=== PATIENT | female | born 1995 | race Caucasian/White ===

== ENCOUNTER 2018-05-03 20:08 | Inpatient (IN) ==
--- NOTE | 2018-05-03 18:32 | OB/GYN Progress Note ---
Date of Encounter: 05/03/18 Time of Encounter: 18:29 - Assessment and Plan (1) Pelvic pressure in Current Visit: Yes Status: Acute SVE unchanged. Suspect pressure from low station. Spotting from exam earlier today. Discharge home with precautions. Follow-up Tuesday as scheduled for IOL. (2) 38 weeks gestation of Current Visit: Yes Status: Acute Subjective - Subjective Interval history: 22 year-old presenting at 38w6d with c/o pelvic pressure and bright red spotting. She was seen in the office today and was checked. She reports the bleeding started then and has just been spotting on her toilet paper. No blood on her pad. She denies contractions but reports increased pelvic pressure and urinary frequency. No leaking fluid. No dysuria or other symptoms. Good FM. Antepartum ROS: vaginal bleeding, movement normal, no loss of fluid, no contractions Objective - Vital Signs Vital Signs: Intake and Output 05/03/18 05/03/18 05/03/18 07:59 15:59 23:59 Other: Weight 69.3 kg Patient Weight 05/03/18 23:59 Weight 69.3 kg - Exam FHR: category 1 FHR comments: NST 135 BPM and reactive Auscultation: bilateral: normal Abdomen: Present: soft, gravid Uterus: Present: normal Cervical dilation: 4-5cm, unchanged from office
[2018-05-03 18:42] LABS: Amphetamine Screen,Urine Negative ng/mL (Cutoff=1000); Barbiturate Screen,Urine Negative ng/mL (Cutoff=200); Benzodiazepines Screen,Urine Negative ng/mL (Cutoff=200); Cannabinoid Screen,Urine Negative ng/mL (Cutoff = 50); Cocaine Screen,Urine Negative ng/mL (Cutoff= 300); Opiate Screen,Urine Negative ng/mL (Cutoff=300); Phencyclidine Screen,Urine Negative ng/mL (Cutoff=25)
--- NOTE | 2018-05-03 19:50 | OB/GYN History & Physical ---
Date of Encounter: 05/03/18 Time of Encounter: 19:46 Assessment and Plan (1) Pelvic pressure in Current visit: Yes Status: Acute (2) 38 weeks gestation of Current visit: Yes Status: Acute NST reactive, FHR baseline 135bpm. Admit for IOL to begin at midnight at 39weeks per Dr. Palumbo. Epidural when desired (3) History of depression Current visit: Yes Status: Acute Reports good mood. History of Present Illness Chief complaint: Pelvic Pressure HPI: 22 year-old presenting at 38w6d with c/o pelvic pressure and bright red spotting. She was seen in the office today and was checked. She reports the bleeding started then and has just been spotting on her toilet paper. No blood on her pad. She denies contractions but reports increased pelvic pressure and urinary frequency. No leaking fluid. No dysuria or other symptoms. Good FM. AB Positive GBS Negative Rubella Immune HIV Nonreactive Syphillis Negative Hep B Nonreactive Past Med Surg Social Fam HX - Past Medical History Medical history: asthma, other Additional medical history: depression Psychiatric history: anxiety, depression - Past Surgical History Surgical History: other Additional surgical history: rt ovary removed,tonsils,d&c - Social History Smoking Status: Never smoker Smokeless Tobacco Status: No Alcohol use: none Drug use: none - Family History Father Adopted: No Family Member Ethnicity: Non- Living Status: Hx Family Cardiac Disorders: Yes (enlarged heart, heart failure, [place]) Hx Family Respiratory Disorders: Yes (copd, asthma) Hx Family Cancer: Yes (leukemia) Hx Family GI Disorders: No Hx Family Genitourinary Disorders: Yes (renal failure) Hx Family Endocrine Disorder: Yes (DM) Hx Family Neurologic Disorders: Yes (Stroke) Obstetrical History - Pregnancies : 3 Para: 1 Term: 1 : 0 Ab's: 1 Livin Medications and Allergies Sertraline [Zoloft] 50 mg PO HS 03/03/16 [History] DiphenhydraMINE [Benadryl] 1 tab PO PRN PRN 05/03/18 [History] Vits #90/Iron Fum/FA [ Formula Tablet] 1 tab PO DAILY 05/03/18 [History] Allergy/AdvReac Type Severity Reaction Status Date / Time citalopram [From Celexa] Allergy Unknown See Verified 10/03/17 00:54 Comments lamotrigine [From Lamictal] Allergy Rash Verified 10/03/17 00:54 Sulfa (Sulfonamide Allergy Hives Verified 10/03/17 00:54 Antibiotics) Review of System OB All systems PM: reviewed and no additional remarkable complaints except as stated Exam - Constitutional Constitutional: well developed, well nourished, no acute distress, average body habitus - HEENT HEENT: Mucus Membranes Moist - Neck Neck exam: full ROM - Lungs Respiratory exam: CTAB - Cardiovascular Cardiovascular exam: RRR - Abdomen Abdomen: Present: bowel sounds normal - Extremities Extremities exam: normal capillary refill, normal inspection Deep Tendon Reflex Grade: 2+ Normal - Cervix Dilation: 4 (4-5cm) Effacement: 75 Station: -1 Results All other labs normal. - VTE Reasons for not Prescribing Prophylaxis: Treatment not Indicated - Low risk for VTE
[~2018-05-03 20:08] MED LIST: *HR* Nalbuphine 10 MG/ML AMPUL IVP PRN; Famotidine 20 MG/2 ML VIAL IVP PRN; Metoclopramide 10 MG/2 ML VIAL IVP PRN; Naloxone 0.4 MG/ML INJ IVP PRN; Ondansetron 4 MG/2 ML VIAL IVP PRN
[2018-05-03] MEDS ORDERED: Ringers Solution, Lactated 1,000 ML IVC SCH (20:15)
[2018-05-03 20:54] LABS: Basophils # 0.1 K/mcL (0.0-0.2); Basophils % 0.4 %; Eosinophils # 0.2 K/mcL (0.0-0.6); Eosinophils % 1.2 %; Hematocrit 28.6 % (35.3-44.9); Hemoglobin 9.3 g/dL (11.5-15.4); Immature Granulocytes % 1.6 % (0-4); Lymphocytes # 2.7 K/mcL (0.6-4.6); Lymphocytes % 16.6 %; Mean Corpuscular HGB Conc 32.5 g/dL (31.6-35.5); Mean Corpuscular Volume 89.1 fL (83.0-100.0); Mean Platelet Volume 11.4 fL (9.4-12.4); Monocytes % 6.1 %; Neutrophils # 12.2 K/mcL (1.6-8.9); Platelet Count 244 K/mcL (140-400); Red Blood Count 3.21 M/mcL (3.82-4.97); Red Cell Distribution Width 13.6 % (11.5-14.5); Segmented Neutrophils % 74.1 %
[2018-05-03 21:16] LABS: Amphetamine Screen,Urine Negative ng/mL (Cutoff=1000); Barbiturate Screen,Urine Negative ng/mL (Cutoff=200); Benzodiazepines Screen,Urine Negative ng/mL (Cutoff=200); Cannabinoid Screen,Urine Negative ng/mL (Cutoff = 50); Cocaine Screen,Urine Negative ng/mL (Cutoff= 300); Opiate Screen,Urine Negative ng/mL (Cutoff=300); Phencyclidine Screen,Urine Negative ng/mL (Cutoff=25)
--- NOTE | 2018-05-04 00:27 | OB Labor Progress Note ---
Date of Encounter: 05/04/18 Time of Encounter: 00:24 Labor Progress Note - Subjective Subjective: Pt reports irregular contractions at this time. - Cervix Cervix: 5/90/-1 - Heart Tones Heart Tones: Category I - Odin Odin: irregular and mild - Interventions Interventions: AROM for small amount clear fluid - Plan Plan: Will augment with pitocin as necessary. Epidural when requested. Anticipate . POC discussed with Dr. Palumbo
[2018-05-04] MEDS ORDERED: Bupivacaine-MPF 0.25% 10 ML VIAL EP ONE (00:34)
[2018-05-04] MEDS ORDERED: *HR* FentaNYL (PF) 100 MCG/2 ML VIAL EP ONE (00:34)
[2018-05-04] MEDS ORDERED: Bupivacaine-MPF 0.25% 10 ML VIAL ONE (00:36)
[2018-05-04] MEDS ORDERED: Lidocaine -MPF 1% 5 ML AMPUL ONE (00:36)
[2018-05-04] MEDS ORDERED: *HR* FentaNYL (PF) 100 MCG/2 ML VIAL ONE (00:37)
[2018-05-04] MEDS ORDERED: Epidural Premix (fent/bupiv) 110 ML EP SCH (00:45)
--- NOTE | 2018-05-04 00:49 | Anesthesia Evaluation PreOp ---
Date of Encounter: 05/04/18 Time of Encounter: 00:47 - Past History Planned Operation: COLBY Cardiac History: Denies any Significant Hx Pulmonary History: Asthma (well-controlled) GUM [employer]ER History: Other (scoliosis, anxiety/depression) Anesthesia History: No Prior Anesthetic Complications (denies personal and family h/o GA complications), Past Anesthesia (R oopherectomy, tonsillectomy, D&C, umbilical hernia repair), Problems (CLEx1--difficulty with placement secondary to scoliosis) : Yes Alcohol Use: none Drug use: none Medications and Allergies Sertraline [Zoloft] 50 mg PO HS 03/03/16 [History] DiphenhydraMINE [Benadryl] 1 tab PO PRN PRN 05/03/18 [History] Vits #90/Iron Fum/FA [ Formula Tablet] 1 tab PO DAILY 05/03/18 [History] Allergy/AdvReac Type Severity Reaction Status Date / Time citalopram [From Celexa] Allergy Unknown See Verified 10/03/17 00:54 Comments lamotrigine [From Lamictal] Allergy Rash Verified 10/03/17 00:54 Sulfa (Sulfonamide Allergy Hives Verified 10/03/17 00:54 Antibiotics) - Meds/Allergy Pre-op Review Medications Reviewed: Yes Allergies Reviewed: Yes Beta Blockers on Current Med List: No Anesthesia Results - Labs 05/03/18 20:28 Anesthesia Exam 130/79, HR 105 O2 Sat Height 1.63 m Height 1.63 m Weight 69.3 kg Weight 69.3 kg NPO (# of Hours): solids >1 Pain Scale: 0 Pain Scale Used: Numeric (1 - 10) - HEENT Pupil (Motor): Pupils equal Mallampati: II Teeth: Normal Oral Opening: Greater than 3 - GUM MAKER LOC: Oriented GUM MAKER Motor: Normal RUE, Normal LUE, Normal RLE, Normal LLE, Normal Face GUM MAKER Sensory: Normal: RUE, LUE, RLE, LLE, Face - Cardiac Rhythm: Regular Murmur: None - Pulmonary Breath Sounds: bilateral Clear Respiratory Effort: Symmetrical Anesthesia Assess/Plan ASA Score: 2 Level of consciousness: Cooperative, Oriented, Tranquil Anesthetic Plan: Epidural Autologous Blood: No Monitoring Plan: Standard Monitors Recovery Plan: Other
[2018-05-04] MEDS ORDERED: Oxytocin 20 units/ LR 1000 mL 20 UNIT/1,000 ML BAG IVC SCH ×2 (01:45→05:33)
--- NOTE | 2018-05-04 03:09 | Anesthesia Procedures ---
Addendum entered and electronically signed by Jeremie Campuzano CRNA 05/04/18 07:02: Delivery Date: 05/04/18 Delivery Time: 04:13 Original Note: Date of Encounter: 05/04/18 Time of Encounter: 02:42 Procedures: Anesthesia - Epidural/Spinal Patient ID/Chart reviewed: Yes Patient examined: Yes OB Eval: Gestational age: 39 weeks 0 days OB Eval: : 3 OB Eval: Hx Para: 1 OB Eval: Contractions: Non-stressed pattern Consent Obtained: Yes Supplemental Oxygen: None/Room Air Site Prep: Aseptic Technique, Sterile prep and drape, Povidone-Iodine 1% Patient position: upright Local Anesthetic: Lidocaine 1% Amount of Local Anesthetic used: 3 Touhy Needle Gauge: 18 Touhy Needle Depth (cm): 5 Catheter Depth at Skin (cm): 10 Test Dose (1.5% Lido + Epi): Volume given (mls): 5 Test Dose Result: Negative Loading Dose: 0.25% Marcaine (mls): 5 Loading Dose: Fentanyl (mcg): 100 Loading Dose Administered: Thru Catheter Infusion Med: 0.125% Bupivacaine w/ 2 mcg/ml Fentanyl Infusion Rate (mls/hr): 14 (demand bolus of 5mL q30min PRN) Catheter Secured in Place: Tegaderm, Tape Interspace Used: L3-L4 Loss of Resistance (THO): Yes Blood: No CSF: No Paresthesia: No Procedure: successful on 1st attempt; patient tolerated procedure well; VSS Vitals + FHT's: See Ashly RAMIREZ's electronic records for VS entry
--- NOTE | 2018-05-04 04:29 | OB/GYN Procedure Note ---
Delivery - Delivery Date: 05/04/18 Provider: Julia Palumbo Intrapartum events: none Delivery induction: AROM Delivery augmentation: rupture of membranes, pitocin Delivery monitor: internal FHT Anesthesia: epidural Quantitated Blood Loss: 100 - (s) Infant A Infant Delivery Date: 05/04/18 Infant Delivery Time: 04:13 Presentation: vertex Position: GEOVANI Route of delivery: Gender: Male Viability: Viable Pounds: 7 Ounces: 4 Weight Gram: 3295 kg at 1 minute: 8 at 5 mins: 9 at 10 mins: 9 Shoulder Dystocia: not encountered Placenta: spontaneous Cord: 3 umbilical vessels - Repair Episiotomy: none Laceration Description: Labial - Complications Delivery complications: none - Disposition Mom disposition: stable in LDR disposition: stable in LDR - Comments Comments: Called to room with patient complete and +2 station. Under maternal effort she delivered a viable male weighing 7lbs 4 oz. and Apgars 8 amd 9 at one and 5 minutes respectively over intact perineum. No nuchal cord present or shoulder dystocia was encountered. The body was then delivered with maternal effort and placed on mom's abdomen. Cord was allowed to cease pulsation and was subsequently clamped and cut with assistance from the father. Placenta delivered spontaneously, complete, and intact with three-vessel cord at 0420. Left labial laceration noted which was hemostatic without repair. Hemostasis is assured. There were no perineal, vaginal, or cervical lacerations on exam. Bennett alvarado did well and is recovering in LDR in stable condition.
[2018-05-04] MEDS ORDERED: Sennosides 8.6 MG TABLET PO PRN (05:33)
[2018-05-04] MEDS ORDERED: Acetaminophen 325 MG TABLET PO PRN (05:33)
[2018-05-04] MEDS: Prenatal Vit/FA 1 EACH TABLET PO SCH (09:29)
[2018-05-04] MEDS: Ibuprofen 600 MG TABLET PO PRN (19:39)
[2018-05-05] MEDS: Ibuprofen 600 MG TABLET PO PRN (04:20)
[2018-05-05 06:58] LABS: Basophils # 0.1 K/mcL (0.0-0.2); Basophils % 0.5 %; Eosinophils # 0.2 K/mcL (0.0-0.6); Eosinophils % 1.1 %; Hematocrit 26.4 % (35.3-44.9); Hemoglobin 8.4 g/dL (11.5-15.4); Immature Granulocytes % 1.4 % (0-4); Lymphocytes # 4.3 K/mcL (0.6-4.6); Lymphocytes % 25.3 %; Mean Corpuscular HGB Conc 31.8 g/dL (31.6-35.5); Mean Corpuscular Hemoglobin 28.9 pg (28.0-33.3); Mean Corpuscular Volume 90.7 fL (83.0-100.0); Mean Platelet Volume 11.1 fL (9.4-12.4); Monocytes # 1.2 K/mcL (0.0-1.3); Monocytes % 7.1 %; Platelet Count 223 K/mcL (140-400); Red Blood Count 2.91 M/mcL (3.82-4.97); Red Cell Distribution Width 13.7 % (11.5-14.5); Segmented Neutrophils % 64.6 %
[2018-05-05] MEDS: Prenatal Vit/FA 1 EACH TABLET PO SCH (07:51)
[2018-05-05 08:13] VITALS: BP 117/77
--- NOTE | 2018-05-05 10:30 | Discharge Summary ---
Date of Encounter: 05/05/18 Time of Encounter: 10:27 - Discharge Diagnosis (1) Vaginal delivery Priority: Primary Status: Acute Comments: Meeting all PP milestones, bottle feeding, pain well managed, desires discharge - Discharge Medications Prescriptions: Ibuprofen [Motrin] 600 mg PO Q6HR PRN #60 tablet PRN Reason: Cramping Docusate [Colace] 100 mg PO BID #30 capsule Ferrous Sulfate 325 mg PO BIDWM #60 tablet Home Medications: Sertraline [Zoloft] 50 mg PO HS 03/03/16 [History] Vits #90/Iron Fum/FA [ Formula Tablet] 1 tab PO DAILY 05/03/18 [History] Acetaminophen [Tylenol] 650 mg PO Q6HR PRN tablet 05/05/18 [Rx] Docusate [Colace] 100 mg PO BID #30 capsule 05/05/18 [Rx] Ferrous Sulfate 325 mg PO BIDWM #60 tablet 05/05/18 [Rx] Ibuprofen [Motrin] 600 mg PO Q6HR PRN #60 tablet 05/05/18 [Rx] Allergies/Adverse Reactions: Allergy/AdvReac Type Severity Reaction Status Date / Time citalopram [From Celexa] Allergy Unknown See Verified 10/03/17 00:54 Comments lamotrigine [From Lamictal] Allergy Rash Verified 10/03/17 00:54 Sulfa (Sulfonamide Allergy Hives Verified 10/03/17 00:54 Antibiotics) Data Procedures and tests throughout hospitalization: Laboratory Tests 05/03/18 05/03/18 05/03/18 18:05 20:28 20:28 WBC 16.5 H RBC 3.21 L Hgb 9.3 L Hct 28.6 L MCV 89.1 MCH 29.0 MCHC 32.5 RDW 13.6 Plt Count 244 MPV 11.4 Immature Gran % 1.6 Seg Neutrophils % 74.1 Lymphocytes % 16.6 Monocytes % 6.1 Eosinophils % 1.2 Basophils % 0.4 Neutrophils # 12.2 H Lymphocytes # 2.7 Monocytes # 1.0 Eosinophils # 0.2 Basophils # 0.1 Urine Opiates Screen Negative Ur Barbiturates Screen Negative Ur Phencyclidine Scrn Negative Ur Amphetamines Screen Negative U Benzodiazepines Scrn Negative Urine Cocaine Screen Negative U Marijuana (THC) Screen Negative Ur Drug Screen Interp See Below Blood Type AB POSITIVE Antibody Screen NEGATIVE 05/03/18 05/05/18 20:34 06:27 WBC 17.0 H RBC 2.91 L Hgb 8.4 L Hct 26.4 L MCV 90.7 MCH 28.9 MCHC 31.8 RDW 13.7 Plt Count 223 MPV 11.1 Immature Gran % 1.4 Seg Neutrophils % 64.6 Lymphocytes % 25.3 Monocytes % 7.1 Eosinophils % 1.1 Basophils % 0.5 Neutrophils # 11.0 H Lymphocytes # 4.3 Monocytes # 1.2 Eosinophils # 0.2 Basophils # 0.1 Urine Opiates Screen Negative Ur Barbiturates Screen Negative Ur Phencyclidine Scrn Negative Ur Amphetamines Screen Negative U Benzodiazepines Scrn Negative Urine Cocaine Screen Negative U Marijuana (THC) Screen Negative Ur Drug Screen Interp See Below Blood Type Antibody Screen Labs on day of discharge: Labs from last 24 hours 05/05/18 06:27 WBC 17.0 H RBC 2.91 L Hgb 8.4 L Hct 26.4 L MCV 90.7 MCH 28.9 MCHC 31.8 RDW 13.7 Plt Count 223 MPV 11.1 Immature Gran % 1.4 Seg Neutrophils % 64.6 Lymphocytes % 25.3 Monocytes % 7.1 Eosinophils % 1.1 Basophils % 0.5 Neutrophils # 11.0 H Lymphocytes # 4.3 Monocytes # 1.2 Eosinophils # 0.2 Basophils # 0.1 Date of admission: 05/03/18 20:08 Primary care physician: VENKAT PRECIADO Consults: 05/04/18 05:33 Consult to Day Worker [CONS] Routine Comment: Vaginal delivery, consult needed Discharging clinician: Ninoska Lee Anticipated date of discharge: 05/05/18 - Patient Status Disposition: Home, Self-Care Condition: Good Functional capacity at discharge: independent ambulation Overall status at discharge: patient is progressing back to baseline - Discharge Instructions Follow Up With: NONE,PCP [Primary Care Provider] - Julia Palumbo, DO [Partnered Physician] - - Diet and Activity Activity: resume usual activities as tolerated Diet: regular diet Hospital Course Reason for admission: IUP at term Delivery: Episiotomy: none Laceration: other complications: none Discharge diagnosis: spontaneous Jeff baby: male Hospital course: Delivery - Delivery Date: 05/04/18 Provider: Julia Palumbo Intrapartum events: none Delivery induction: AROM Delivery augmentation: rupture of membranes, pitocin Delivery monitor: internal FHT Anesthesia: epidural Quantitated Blood Loss: 100 - (s) Infant A Delivery Date: 05/04/18 Infant Delivery Time: 04:13 Presentation: vertex Position: GEOVANI Route of delivery: Gender: Male Viability: Viable Pounds: 7 Ounces: 4 Weight Gram: 3295 kg at 1 minute: 8 at 5 mins: 9 at 10 mins: 9 Shoulder Dystocia: not encountered Placenta: spontaneous Cord: 3 umbilical vessels - Repair Episiotomy: none Laceration Description: Labial - Complications Delivery complications: none - Disposition Mom disposition: stable in PP and appropriate for discharge Time Attestation: Total time spent providing and/or coordinating discharge services: Time Spent: Less than 30 minutes Exam - Constitutional Vitals: Temp Pulse Resp BP Pulse Ox 98.5 F 65 16 117/77 97 05/05/18 07:45 05/05/18 07:45 05/05/18 07:45 05/05/18 07:45 05/05/18 04:15 General appearance IM: A&O X 3 - Respiratory Respiratory exam: Present: CTAB - Cardiovascular Cardiovascular exam IM: Present: RRR - GI/Abdominal GI/Abdominal exam IM: soft - Uterine Tone: Firm Uterus Position: At Umbilicus - Extremities Exam Extremities exam IM: Present: normal capillary refill, normal inspection - Neurological Exam Neurological exam: normal gait, oriented X3 - Psychiatric Additional comments: reports good mood
== END 2018-05-05 12:10 | disposition home or self-care (01) | DRG 560 ==
LOC: 1NENULAB → 1NENUOBS 05-04 06:53
PROVIDERS: ADMIT Obstetrics & Gynecology; ATTEND Obstetrics & Gynecology